=== PATIENT | female | born 1965 | race Caucasian/White ===

== ENCOUNTER → 2024-05-13 12:58 | Outpatient (REF) | payer OTHER, SELFPAY | LOC: HWWDC 12:58 | PROVIDERS: ATTENDING PHYSICIAN Obstetrics & Gynecology; FAMILY PHYSICIAN Family Medicine | DX: Z12.31 Encounter for screening mammogram for malignant neoplasm of breast (principal) | CPT/HCPCS: 77063; 77067 ==

== ENCOUNTER → 2024-11-21 12:28 | Outpatient (REF) | payer OTHER, SELFPAY | LOC: RAD 12:28 | PROVIDERS: ATTENDING PHYSICIAN Family Medicine | DX: M54.41 Lumbago with sciatica, right side (principal); M25.551 Pain in right hip | CPT/HCPCS: 72110; 73502 ==